=== PATIENT | female | born 1995 | race Caucasian/White ===

== ENCOUNTER 2017-03-19 22:37 | Emergency (ER) | payer BC ==
--- NOTE | 2017-03-20 05:34 | ER ---
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 No seizure. The patient does suffer from panic attacks. Came in by private auto, catatonic, was extricated from vehicle. Began hyperventilating. Treated with Xanax 0.25 mg sublingual, reassurance with improvement. CT head negative. Discharged with work release tomorrow. Follow up Dr. Elizalde as needed. Vinnie Briceno MD/ kianal JOB #: [id number] CC: Vinnie Briceno MD, Attending Physician Lacy Elizalde MD, Family Physician Lacy Elizalde MD
== END 2017-03-19 23:44 | disposition home or self-care (01) ==
LOC: ER 22:37
DX: S09.90XA Unspecified injury of head, initial encounter (principal); F41.0 Panic disorder [episodic paroxysmal anxiety]; Z23 Encounter for immunization; Z91.010 Allergy to peanuts; Z79.899 Other long term (current) drug therapy; W22.8XXA Striking against or struck by other objects, initial encounter; Y92.830 Public park as the place of occurrence of the external cause